=== PATIENT | female | born 1960 | race Caucasian/White ===

== ENCOUNTER → 2018-05-26 | Outpatient (CLI) | payer MEDICAID ==
[~2018-05-26] MED LIST: CHOL200024 PO; CYCL5TAB PO; MULT-516 PO; TRAZ-137 PO
== END | disposition home or self-care (01) ==
LOC: MERGE 09:00 → STAR 10:21
PROVIDERS: ATTEND Surgery
DX: Z02.9 Encounter for administrative examinations, unspecified (principal)

== ENCOUNTER 2018-06-02 06:46 | Day surgery (SDC) | payer MEDICAID ==
[2018-05-26 09:39] VITALS: BP 119/71
[~2018-06-02] VITALS: Ht 165.1 cm; Wt 60.4 kg
[~2018-06-02 06:46] MED LIST changes: +BUPIVACAINE/PF-EPI 0.5% 1:200K ONE; +INDOCYANINE GREEN 25 MG VIAL ONE
[2018-06-02] MEDS ORDERED: METOCLOPRAMIDE 5 MG/ML, 2ML IVPush ONE (08:00)
[2018-06-02] MEDS ORDERED: FAMOTIDINE 20 MG/2 ML IVPush ONE (08:00)
[2018-06-02] MEDS ORDERED: ACETAMINOPHEN 500 MG TABLET PO ONE (08:00)
[2018-06-02] MEDS ORDERED: GABAPENTIN 300 MG CAPSULE PO ONE (08:00)
[2018-06-02] MEDS ORDERED: LORazepam 2 MG/ML, 1ML IVPush ONE (08:00)
[2018-06-02] MEDS ORDERED: LORazepam 2 MG/ML, 1ML ONE (08:22)
[2018-06-02] MEDS ORDERED: INDOCYANINE GREEN 25 MG VIAL IV ONE (08:30)
[2018-06-02] MEDS ORDERED: FENTANYL PF 250 MCG/5ML ONE (08:58)
[2018-06-02] MEDS ORDERED: MIDAZOLAM 1 MG/ML, 2ML ONE (08:58)
[2018-06-02] MEDS ORDERED: LIDOCAINE JELLY 2%, 30GM ONE (08:59)
[2018-06-02] MEDS ORDERED: hydrALAzine 20 MG/ML, 1ML IV PRN (09:30)
[2018-06-02] MEDS ORDERED: OXYcodone 5 MG/5 ML ORAL.SOL UDC PO PRN (09:30)
[2018-06-02] MEDS ORDERED: ONDANSETRON 2MG/ML, 2ML IV PRN (09:30)
[2018-06-02] MEDS ORDERED: SCOPOLAMINE PATCH, 1.5MG PATCH.TD72 TD PRN (09:30)
[2018-06-02] MEDS ORDERED: MIDAZOLAM 1 MG/ML, 2ML IV PRN (09:30)
[2018-06-02] MEDS ORDERED: ALBUTEROL/IPRATROPIUM 2.5MG/0.5MG, 3 ML NPPB PRN (09:30)
[2018-06-02] MEDS ORDERED: PROMETHAZINE 25 MG/ML, 1ML IV PRN (09:30)
[2018-06-02] MEDS ORDERED: LABETALOL 5MG/ML, 20ML IV PRN (09:30)
[2018-06-02] MEDS ORDERED: FENTANYL PF 100 MCG/2ML IV PRN (09:30)
[2018-06-02] MEDS ORDERED: FENTANYL PF 100 MCG/2ML ONE (09:43)
[2018-06-02] MEDS ORDERED: GLYCOPYRROLATE 0.2MG/1ML, 5ML ONE (09:44)
[2018-06-02] MEDS ORDERED: DEXAMETHASONE 4 MG/ML, 1ML ONE (09:44)
[2018-06-02] MEDS ORDERED: CEFAZOLIN 1,000 MG ONE (09:44)
[2018-06-02] MEDS ORDERED: NEOSTIGMINE 1 MG/ML, 10ML ONE (09:44)
[2018-06-02] MEDS ORDERED: ROCURONIUM 10MG/ML,5ML ONE (09:44)
[2018-06-02] MEDS ORDERED: ONDANSETRON 2MG/ML, 2ML ONE (09:44)
[2018-06-02] MEDS ORDERED: PROPOFOL 10 MG/ML, 20ML ONE (09:44)
[2018-06-02] MEDS ORDERED: HYDROcodone/APAP 5/325 TABLET PO PRN (10:30)
[2018-06-02] MEDS ORDERED: ONDANSETRON 2MG/ML, 2ML IVPush PRN (10:30)
[2018-06-02] MEDS ORDERED: MORPHINE SULFATE 4 MG/ML, 1ML IVPush PRN (10:30)
[2018-06-02] MEDS ORDERED: OXYcodone 5 MG/5 ML ORAL.SOL UDC ONE (10:50)
[2018-06-02] MEDS ORDERED: HYDROmorphone 2 MG/ML, 1ML ONE (10:50)
[2018-06-02] MEDS: HYDROmorphone 2 MG/ML, 1ML IVPush PRN ×3 (10:52→11:13)
== END 2018-06-02 14:35 | disposition home or self-care (01) ==
LOC: OUT 06:46 → MERGE 09:00 → OUT 14:35
PROVIDERS: ATTEND Surgery
DX: K80.10 Calculus of gallbladder with chronic cholecystitis without obstruction (principal); J45.909 Unspecified asthma, uncomplicated; G47.33 Obstructive sleep apnea (adult) (pediatric); K21.9 Gastro-esophageal reflux disease without esophagitis; Z88.8 Allergy status to other drugs, medicaments and biological substances
CPT/HCPCS: 47562; 88304; C1760; J0690; J1100; J1170; J2060; J2250; J2405; J2704; J2710; J2765; J3010; J3490; S2900